=== PATIENT | male | born 1960 | race Caucasian/White ===

== ENCOUNTER 2019-08-03 00:44 | Emergency (ER) | payer BC ==
[~2019-08-03] VITALS: Ht 193 cm; Wt 117.9 kg
[2019-08-03] MEDS ORDERED: MUPIROCIN 2% OINT 22 GM TUBE TP ONE (01:15)
[2019-08-03] MEDS ORDERED: OXYCODONE/APAP 5-325 MG TABLET PO ONE (01:15)
[2019-08-03] MEDS ORDERED: MUPIROCIN 2% OINT 22 GM TUBE ONE (01:16)
[2019-08-03] MEDS ORDERED: OXYCODONE/APAP 5-325 MG TABLET ONE (01:16)
--- NOTE | 2019-08-03 01:21 | NUR ---
Patient discharged to home in stable conditon. Written and verbal after care instructions given. Patient verbalizes understanding of instructions. Pt walked out of ER in stable condition. No acute distress noted. Vital signs stable. Pt taking Uber home.
[2019-08-03 01:22] VITALS: BP 158/96
== END 2019-08-03 01:22 | disposition home or self-care (01) ==
LOC: ER 00:53
DX: L97.529 Non-pressure chronic ulcer of other part of left foot with unspecified severity (principal); L08.9 Local infection of the skin and subcutaneous tissue, unspecified; I48.91 Unspecified atrial fibrillation; F17.200 Nicotine dependence, unspecified, uncomplicated; Z88.8 Allergy status to other drugs, medicaments and biological substances
CPT/HCPCS: A4663

== ENCOUNTER 2020-03-10 15:09 | Inpatient (IN) | payer BC ==
[~2020-03-10] VITALS: Ht 193 cm; Wt 117.9 kg
--- NOTE | 2020-03-10 15:38 | NUR ---
Dr. Wilkinson at bedside for MSE
[2020-03-10] MEDS ORDERED: VANCOMYCIN IV 1,000 MG in IV DEXTROSE 5% 250 ML IV ONE (16:00)
[2020-03-10] MEDS ORDERED: ONDANSETRON 4 MG/2 ML VIAL IV ONE ×2 (16:00→18:00)
[2020-03-10] MEDS ORDERED: IV NORMAL SALINE 1000 ML BAG IV ONE ×2 (16:00)
[2020-03-10] MEDS ORDERED: LIDOCAINE HCL 2% 20 ML VIAL TP ONE (16:00)
[2020-03-10] MEDS ORDERED: HYDROMORPHONE 1 MG/1 ML DISP.SYRIN IV ONE ×2 (16:00→18:00)
[2020-03-10] MEDS ORDERED: ONDANSETRON 4 MG/2 ML VIAL ONE ×2 (16:04→17:59)
[2020-03-10] MEDS ORDERED: HYDROMORPHONE 2 MG/1 ML DISP.SYRIN ONE ×2 (16:04→17:59)
[2020-03-10] MEDS ORDERED: VANCOMYCIN IV 200 ML ONE (16:04)
[2020-03-10 16:48] LABS: BASOPHILS # (AUTO) 0.1 K/uL (0.0-8.0); BASOPHILS % (AUTO) 1.1 % (0.0-2.0); EOSINOPHILS % (AUTO) 0.4 % (0.0-7.0); HEMATOCRIT 32.6 % (36.7-47.1); HEMOGLOBIN 10.5 g/dL (12.5-16.3); LYMPHOCYTES # (AUTO) 1.5 K/uL (20.0-40.0); LYMPHOCYTES % (AUTO) 17.1 % (20.5-51.5); MEAN CORPUSCULAR HEMOGLOBIN 26.4 uug (23.8-33.4); MEAN CORPUSCULAR HGB CONC 32 g/dL (32.5-36.3); MEAN CORPUSCULAR VOLUME 82.4 fL (73.0-96.2); MONOCYTES # (AUTO) 1.1 K/uL (2.0-10.0); MONOCYTES % (AUTO) 12.2 % (0.0-11.0); NEUTROPHILS # (AUTO) 6.2 K/uL (1.8-8.9); NEUTROPHILS % (AUTO) 69.2 % (38.5-71.5); PLATELET COUNT (AUTO) 285 K/uL (152-348); RED BLOOD CELL COUNT(AUTO) 3.96 MIL/uL (4.06-5.63)
--- NOTE | 2020-03-10 16:57 | NUR ---
Mechanical Service Technician from [facility] patient resides on left contact information: Julio Cesar Villalobos [phone] to be notified when patient about to be discharged
--- NOTE | 2020-03-10 17:00 | NUR ---
Pt. admitted to [facility] , under care of Manolo Johnson CHECKER AND PACKER Belongs List completed
[2020-03-10] MEDS ORDERED: BUPR1FIL5 SL (17:04)
[2020-03-10 17:09] LABS: CREATININE 0.8 mg/dL (0.6-1.3); POTASSIUM 4.4 mmol/L (3.5-5.1)
[2020-03-10 17:13] LABS: BILIRUBIN,DIRECT 0.2 mg/dL (0.0-0.2); BILIRUBIN,TOTAL 0.5 mg/dL (0.2-1.0); TOTAL PROTEIN, SERUM 7.5 g/dL (6.4-8.2)
--- NOTE | 2020-03-10 17:38 | NUR ---
Report given to Celia BERNABE
[2020-03-10] MEDS ORDERED: ONDANSETRON 4 MG/2 ML VIAL IV PRN (18:00)
[2020-03-10] MEDS ORDERED: ZOLPIDEM 5 MG TABLET PO PRN (18:00)
[2020-03-10] MEDS ORDERED: IV NS 1000 ML 1,000 ML IV ONE (18:00)
[2020-03-10] MEDS ORDERED: ACETAMINOPHEN 325 MG TABLET PO PRN (18:00)
[2020-03-10] MEDS ORDERED: HYDROMORPHONE 1 MG/1 ML DISP.SYRIN IV PRN (18:00)
[2020-03-10] MEDS ORDERED: MAGNESIUM HYDROXIDE 30 ML LIQUID UDC PO PRN (18:00)
--- NOTE | 2020-03-10 18:38 | NUR ---
Patient was brought up by nurse Bernardo from the ER on a gurney. Received patient resting in bed. No sign of respiratory distress noted at this time patient is on room air and saturating well. Patient's IV in the left FA 20 gauge. Wick coming out of left foot from incision and drainage procedure done in the ER. In report taken from the ER nurse the sober living site that the patient reside wants to be notified when the patient is ready for discharge. Contact is Julio Cesar Araiza [phone]. Will endorse to the oncoming nurse.
[2020-03-10 18:50] VITALS: BP 139/89
[2020-03-10 21:02] VITALS: BP 134/86
[2020-03-10] MEDS: DOCUSATE SODIUM 250 MG CAPSULE PO SCH (21:14)
[2020-03-10] MEDS: HYDROMORPHONE 1 MG/1 ML DISP.SYRIN IV PRN (21:55)
--- NOTE | 2020-03-10 22:00 | NUR ---
Patient ALOx4 .On room air.No s/s of distress noted.S/p RT foot I &D.No active bleeding noted.C/O sharp, dull aching pain on rt foot .Medicated with PRN medication with relief.Patient able to ambulates to the bathroom.Iv site on Left forearm [address]Patient on ATB therapy for cellulitis.No a/ r noted.Call light with in reach and belongings.Safety measures in place.will continue to monitor.
[2020-03-11] MEDS: VANCOMYCIN IV 1,000 MG in IV DEXTROSE 5% 250 ML IV SCH ×4 (00:10→23:27)
[2020-03-11] MEDS: HYDROMORPHONE 1 MG/1 ML DISP.SYRIN IV PRN ×5 (02:38→21:07)
[2020-03-11] MEDS: HYDROCODONE/APAP 5-325MG TABLET PO PRN ×4 (05:35→19:09)
[2020-03-11 05:51] VITALS: BP 107/67
--- NOTE | 2020-03-11 05:57 | NUR ---
Patient awake .No s/s of distress noted.C/o left foot pain.Medicated with Prn Amigo with good result.Patient went back to sleep.Call light with in reach.
[2020-03-11 06:14] LABS: BASOPHILS % (AUTO) 0.2 % (0.0-2.0); EOSINOPHILS # (AUTO) 0.1 K/uL (0.0-0.7); EOSINOPHILS % (AUTO) 0.8 % (0.0-7.0); HEMATOCRIT 34.4 % (36.7-47.1); HEMOGLOBIN 10.9 g/dL (12.5-16.3); LYMPHOCYTES # (AUTO) 1.3 K/uL (20.0-40.0); LYMPHOCYTES % (AUTO) 15.7 % (20.5-51.5); MEAN CORPUSCULAR HEMOGLOBIN 26.3 uug (23.8-33.4); MEAN CORPUSCULAR HGB CONC 32 g/dL (32.5-36.3); MEAN CORPUSCULAR VOLUME 83.2 fL (73.0-96.2); MONOCYTES % (AUTO) 11.5 % (0.0-11.0); NEUTROPHILS # (AUTO) 6.1 K/uL (1.8-8.9); NEUTROPHILS % (AUTO) 71.8 % (38.5-71.5); PLATELET COUNT (AUTO) 273 K/uL (152-348); RED BLOOD CELL COUNT(AUTO) 4.14 MIL/uL (4.06-5.63); WHITE BLOOD COUNT (AUTO) 8.5 K/uL (3.6-10.2)
[2020-03-11 06:34] LABS: BILIRUBIN,TOTAL 0.7 mg/dL (0.2-1.0); CREATININE 0.9 mg/dL (0.6-1.3); MAGNESIUM 2.1 mg/dL (1.8-2.4); PHOSPHOROUS 3.3 mg/dL (2.5-4.9); POTASSIUM 4.2 mmol/L (3.5-5.1); TOTAL PROTEIN, SERUM 7.7 g/dL (6.4-8.2)
[2020-03-11] MEDS: PANTOPRAZOLE SODIUM 40 MG TABLET.DR PO SCH (06:34)
[2020-03-11 07:36] LABS: THYROID STIMULATING HORMONE 0.603 mIU/mL (0.358-3.740)
--- NOTE | 2020-03-11 09:00 | NUR ---
PATIENT SEEN AND EXAMINED BY STEPHANIE CHUCKING MACHINE SET UP OPERATOR TOOL WITH NEW ORDERS AND NOTED PATIENT CONTINUE ON PAIN MANAGEMENT ORDERED ALSO REMAIN ON ANTIBIOTICS WITH NO ADVERSE OR ALLERGIC REACTIONS AT THIS TIME RIGHT LEG ELEVATED TO RELIEVE PAIN AND REDUCE SWELLING CALL LIGHTS AND PERSONAL BELONGINGS ARE WITHIN EASY REACH WILL CONTINUE TO OBSERVE
[2020-03-11 12:00] VITALS: BP 117/86
[2020-03-11] MEDS: ZINC SULFATE 220 MG CAPSULE PO SCH (12:32)
[2020-03-11] MEDS ORDERED: LIDOCAINE HCL 1% 20 ML VIAL IJ ONE (13:45)
--- NOTE | 2020-03-11 14:48 | NUR ---
DR DAVIS HERE SEEN PATIENT DID A BEDSIDE INCISION AND DRAINAGE PATIENT SIGNED CONSCENT ORDER NOTED FOR MRI OF THE RIGHT FOOT AWAITING FOR THE MRI TIME
--- NOTE | 2020-03-11 14:59 | NUR ---
CALL RECEIVED FROM PAUL RODRIGUEZ STATED UNABLE TO DO MRI DUE TO MRI MALFUNCTION MAY BE WILL BE DONE TOMORROW OR WEDNESDAY BUT WILL CALL AND LET US KNOW.
[2020-03-11 16:00] VITALS: BP 112/81
--- NOTE | 2020-03-11 16:50 | NUR ---
CALLED DR HOOPER RE CLARIFICATION ON CAT SCAN OF THE RIGHY FOOT STATED HE WANT IT DONE WITHOUT CONTRAST CALLED RADIOLOGY SPOKE TO ONDINA STATED WILL GET PATIENT AFTER HIS VANCOMICIN INFUSSION
[2020-03-11] MEDS: METFORMIN HCL 500 MG TABLET PO SCH (17:29)
--- NOTE | 2020-03-11 17:30 | NUR ---
HIS IV SITE INFILTERATED ATTEMPTED MANY TIMES BUT UNABLE CALLED ED SOMEONE WILL BE HERE TO ATTEMPT
--- NOTE | 2020-03-11 18:42 | NUR ---
ED RN HERE AND RESTARTED HIS IV TO HIS RIGHT FOREARM WITH GAUGE 20 SO VANCO INFUSSION RESTARTED AND ITS IN PROGRESS AT THIS TIME
[2020-03-11 20:00] VITALS: BP 117/72
[2020-03-11] MEDS ORDERED: CEFTRIAXONE 1 G in IV DEXTROSE 5% 50 ML IV SCH (20:30)
[2020-03-11] MEDS: DOCUSATE SODIUM 250 MG CAPSULE PO SCH (21:05)
--- NOTE | 2020-03-11 21:45 | NUR ---
Patient in bed awake ,ALOX4 .On RA.Rt foot with dressing intact.S/p I &D .Elevated Rt foot with pillow.Called Radiologist /Moy to inform IV Vancomycin is done and Patient is ready for CT lower ext.Will continue to monitor.
[2020-03-11] MEDS ORDERED: CEFTRIAXONE 1 G VIAL ONE (21:49)
--- NOTE | 2020-03-11 22:30 | NUR ---
Patient back from radiology .Administered Rocephin 1g IV for cellulitis via peripheral line on Rt forearm with 20 g.No a/r noted.Reinforced teaching to con't to elevate Rt foot with pillow to reduce swelling.Call light with in reach .
[2020-03-12] MEDS: HYDROMORPHONE 1 MG/1 ML DISP.SYRIN IV PRN ×5 (02:25→20:14)
[2020-03-12 04:00] VITALS: BP 121/68
[2020-03-12] MEDS: PANTOPRAZOLE SODIUM 40 MG TABLET.DR PO SCH (06:05)
[2020-03-12 06:41] LABS: BASOPHILS % (AUTO) 0.3 % (0.0-2.0); EOSINOPHILS # (AUTO) 0.1 K/uL (0.0-0.7); EOSINOPHILS % (AUTO) 1.4 % (0.0-7.0); HEMATOCRIT 32.8 % (36.7-47.1); HEMOGLOBIN 10.4 g/dL (12.5-16.3); LYMPHOCYTES # (AUTO) 1.2 K/uL (20.0-40.0); LYMPHOCYTES % (AUTO) 17.6 % (20.5-51.5); MEAN CORPUSCULAR HEMOGLOBIN 26.4 uug (23.8-33.4); MEAN CORPUSCULAR HGB CONC 32 g/dL (32.5-36.3); MEAN CORPUSCULAR VOLUME 83.4 fL (73.0-96.2); MONOCYTES # (AUTO) 0.9 K/uL (2.0-10.0); MONOCYTES % (AUTO) 13.2 % (0.0-11.0); NEUTROPHILS # (AUTO) 4.5 K/uL (1.8-8.9); NEUTROPHILS % (AUTO) 67.5 % (38.5-71.5); PLATELET COUNT (AUTO) 246 K/uL (152-348); RED BLOOD CELL COUNT(AUTO) 3.93 MIL/uL (4.06-5.63); WHITE BLOOD COUNT (AUTO) 6.7 K/uL (3.6-10.2)
[2020-03-12 06:43] LABS: CREATININE 0.8 mg/dL (0.6-1.3); POTASSIUM 4.1 mmol/L (3.5-5.1)
--- NOTE | 2020-03-12 07:01 | NUR ---
Patient slept well.No s/s of distress.Iv site on rt forearm intact.No s/s of infiltration.All needs anticipated and met accordingly.
--- NOTE | 2020-03-12 07:30 | NUR ---
RECEIVED PATIENT IN BED WITH EYES CLOSED SEEMS COMFORTABLE ON ROOM AIR WITH NO SOB RIGHT ARM HEPLOCK REMAINS INTACT RIGHT FOOT ELEVATED WITH DRESSING DRY AND INTACT CALL LIGHT IS WITHIN EASY REACH NO C/O NOTED AT THIS TIME WILL CONTINUE TO OBSERVE.
[2020-03-12] MEDS: VANCOMYCIN IV 1,000 MG in IV DEXTROSE 5% 250 ML IV SCH ×3 (08:39→23:12)
[2020-03-12] MEDS: ZINC SULFATE 220 MG CAPSULE PO SCH (08:39)
[2020-03-12] MEDS: METFORMIN HCL 500 MG TABLET PO SCH ×2 (08:39→17:35)
--- NOTE | 2020-03-12 10:00 | NUR ---
RESULTS RECEIVED PER LAB PATIENT HAS MRSA BLOOD CALLED AND NOTIFIED JENNIFER INFECTIOUS DISEASE CLOCK AND WATCH HANDS DIPPER WITH NO NEW ORDERS AT THIS TIME.PATIENT PLACED ON ISOLATION PER INFECTION CONTROL PEA.
[2020-03-12 11:41] VITALS: BP 112/74
--- NOTE | 2020-03-12 11:42 | NUR ---
PATIENT SEEN AND EXAMINED BY ADAM MANAGER WELDING WITH NEW ORDERS AND NOTED
[2020-03-12 16:00] VITALS: BP 111/65
[2020-03-12] MEDS ORDERED: LIDOCAINE HCL 1% 20 ML VIAL IJ ONE (17:10)
--- NOTE | 2020-03-12 17:37 | NUR ---
DR DAVIS HERE AND DID INCISION AND DRAINAGE OF THE RIGHT FOOT AGAIN AND CHANGED THE DRESSING PATIENT KASSIDY WELL
[2020-03-12] MEDS: HYDROCODONE/APAP 5-325MG TABLET PO PRN (18:00)
--- NOTE | 2020-03-12 18:00 | NUR ---
C/O HAVING PAIN MEDICATED WITH NORCO ORDERED DRESSING RIGHT FOOT IS DRY AND INTACT ENCOURAGED TO ELEVATED ON THE PILLOW.
--- NOTE | 2020-03-12 19:00 | NUR ---
Pt in bed, awake. Denies any acute distress but c/o pain on the R. lower leg, will assess and check if PRN pain medication available. Pt had I&D done today, dressing is dry and intact. V/S stable on room air. Afebrile. IV on the RFA is intact. Safety measures in place. Call light within reach. Will continue with the plan of care.
[2020-03-12] MEDS: DOCUSATE SODIUM 250 MG CAPSULE PO SCH (20:14)
[2020-03-12 20:16] VITALS: BP 134/81
[2020-03-13] MEDS: HYDROMORPHONE 1 MG/1 ML DISP.SYRIN IV PRN ×6 (00:26→21:36)
[2020-03-13] MEDS: HYDROCODONE/APAP 5-325MG TABLET PO PRN ×4 (03:49→16:17)
--- NOTE | 2020-03-13 04:00 | NUR ---
Pt refused [place]. Will wait for about 40 mins for Dilaudid instead.
[2020-03-13 04:35] VITALS: BP 110/74
[2020-03-13 05:57] LABS: BASOPHILS % (AUTO) 0.4 % (0.0-2.0); EOSINOPHILS # (AUTO) 0.1 K/uL (0.0-0.7); EOSINOPHILS % (AUTO) 2.3 % (0.0-7.0); HEMATOCRIT 32.1 % (36.7-47.1); HEMOGLOBIN 10.3 g/dL (12.5-16.3); LYMPHOCYTES # (AUTO) 1.3 K/uL (20.0-40.0); LYMPHOCYTES % (AUTO) 24.8 % (20.5-51.5); MEAN CORPUSCULAR HEMOGLOBIN 26.3 uug (23.8-33.4); MEAN CORPUSCULAR HGB CONC 32 g/dL (32.5-36.3); MEAN CORPUSCULAR VOLUME 82.5 fL (73.0-96.2); MONOCYTES # (AUTO) 0.6 K/uL (2.0-10.0); MONOCYTES % (AUTO) 11.8 % (0.0-11.0); NEUTROPHILS # (AUTO) 3.3 K/uL (1.8-8.9); NEUTROPHILS % (AUTO) 60.7 % (38.5-71.5); PLATELET COUNT (AUTO) 263 K/uL (152-348); WHITE BLOOD COUNT (AUTO) 5.4 K/uL (3.6-10.2)
[2020-03-13] MEDS: PANTOPRAZOLE SODIUM 40 MG TABLET.DR PO SCH (06:09)
[2020-03-13 06:20] LABS: CREATININE 0.8 mg/dL (0.6-1.3); MAGNESIUM 2.1 mg/dL (1.8-2.4); POTASSIUM 4.1 mmol/L (3.5-5.1)
--- NOTE | 2020-03-13 06:22 | NUR ---
Pt slept intermittently through the night. Pt denies any acute distress/SOB. V/S stable on room air. Dressing on the R. leg remains intact, dry and no s/s of bleeding noted. Pain managed effectively. Comfort care and needs attended. Safety measures in place. Bed low and locked in position. Call light within reach. Will endorse to the oncoming nurse accordingly.
[2020-03-13 08:30] VITALS: BP 124/76
[2020-03-13] MEDS: ZINC SULFATE 220 MG CAPSULE PO SCH (09:03)
[2020-03-13] MEDS: VANCOMYCIN IV 1,000 MG in IV DEXTROSE 5% 250 ML IV SCH ×2 (09:03→16:11)
[2020-03-13] MEDS: METFORMIN HCL 500 MG TABLET PO SCH ×2 (09:03→17:32)
[2020-03-13 10:54] VITALS: BP 117/63
[2020-03-13 15:27] VITALS: BP 123/77
--- NOTE | 2020-03-13 19:30 | NUR ---
Received patient awake and lying in bed. AAOx4. No s/s of acute distress noted at this time. Patient denies SOB. C/o pain, will follow up with ordered medications. Right leg dressing dry and intact no s/s of bleeding. Bed locked and in low position. Safety measures in place and will continue to monitor.
--- NOTE | 2020-03-13 19:35 | NUR ---
Right FA IV infiltrated and swollen. Removed IV. Educated patient on elevation of the right arm as well as applying an ice pack to reduce swelling. Will continue to monitor.
[2020-03-13 20:00] VITALS: BP_SYST 104; BP_SYST 130; BP_DIAS 66; BP_DIAS 92
[2020-03-13] MEDS: DOCUSATE SODIUM 250 MG CAPSULE PO SCH (21:06)
[2020-03-14] MEDS: VANCOMYCIN IV 1,000 MG in IV DEXTROSE 5% 250 ML IV SCH ×2 (00:04→08:01)
[2020-03-14] MEDS: HYDROMORPHONE 1 MG/1 ML DISP.SYRIN IV PRN ×5 (01:16→17:01)
[2020-03-14] MEDS: HYDROCODONE/APAP 5-325MG TABLET PO PRN ×2 (03:41→19:41)
[2020-03-14 04:00] VITALS: BP 117/73
[2020-03-14] MEDS: PANTOPRAZOLE SODIUM 40 MG TABLET.DR PO SCH (06:09)
[2020-03-14 06:18] LABS: BASOPHILS % (AUTO) 0.4 % (0.0-2.0); EOSINOPHILS # (AUTO) 0.2 K/uL (0.0-0.7); EOSINOPHILS % (AUTO) 4.1 % (0.0-7.0); HEMATOCRIT 29.9 % (36.7-47.1); HEMOGLOBIN 9.7 g/dL (12.5-16.3); LYMPHOCYTES # (AUTO) 1.6 K/uL (20.0-40.0); LYMPHOCYTES % (AUTO) 30.9 % (20.5-51.5); MEAN CORPUSCULAR HEMOGLOBIN 26.6 uug (23.8-33.4); MEAN CORPUSCULAR HGB CONC 33 g/dL (32.5-36.3); MONOCYTES # (AUTO) 0.6 K/uL (2.0-10.0); MONOCYTES % (AUTO) 12.6 % (0.0-11.0); NEUTROPHILS # (AUTO) 2.6 K/uL (1.8-8.9); PLATELET COUNT (AUTO) 251 K/uL (152-348); RED BLOOD CELL COUNT(AUTO) 3.64 MIL/uL (4.06-5.63); WHITE BLOOD COUNT (AUTO) 5.1 K/uL (3.6-10.2)
[2020-03-14 06:42] LABS: CREATININE 0.9 mg/dL (0.6-1.3); MAGNESIUM 2.2 mg/dL (1.8-2.4); PHOSPHOROUS 4.1 mg/dL (2.5-4.9); POTASSIUM 3.9 mmol/L (3.5-5.1)
--- NOTE | 2020-03-14 07:00 | NUR ---
RECEIVED PATIENT IN BED WITH EYES CLOSED SEEMS COMFORTABLE ON ROOM AIR WITH NO SOB RIGHT FOOT ELEVATED WITH DRESSING DRY AND INTACT CALL LIGHT IS WITHIN REACH, NO C/O of pain NOTED AT THIS TIME WILL CONTINUE TO OBSERVE.
[2020-03-14] MEDS: ZINC SULFATE 220 MG CAPSULE PO SCH (08:02)
[2020-03-14] MEDS: METFORMIN HCL 500 MG TABLET PO SCH ×2 (08:02→17:00)
--- NOTE | 2020-03-14 11:30 | NUR ---
PATIENT SEEN AND EXAMINED BY NADIA OLIVER
[2020-03-14 11:36] VITALS: BP 120/69
--- NOTE | 2020-03-14 14:25 | NUR ---
right foot dressing change by the
[2020-03-14 16:00] VITALS: BP 115/75
[2020-03-14] MEDS ORDERED: ZINC1CAP2 PO (16:46)
[2020-03-14] MEDS ORDERED: RXVAN XX (16:46)
[2020-03-14] MEDS ORDERED: METF-440 PO (16:46)
[2020-03-14] MEDS ORDERED: VANCOMYCIN IV 750 MG in IV DEXTROSE 5% 250 ML IV SCH (17:00)
--- NOTE | 2020-03-14 19:00 | NUR ---
Patient sitting in chair, waiting to be discharged. V/S stable. But c/o pain on the R. leg. Will assess and give prescribed prn pain medication. Will continue to monitor.
--- NOTE | 2020-03-14 19:01 | NUR ---
pt refused to take the wound picture he said i do not want to open my dressing md made aware
== END 2020-03-14 20:30 | disposition home or self-care (01) | DRG 559 ==
LOC: ER 15:16 → MEDSURG3 17:49
PROVIDERS: ADMIT Nurse Practitioner Acute Care; ATTEND Registered Nurse
PROC: 0J9Q30Z Drainage of Right Foot Subcutaneous Tissue and Fascia with Drainage Device, Percutaneous Approach (ICD-10-PCS; principal; 2020-03-11)
PROC: 0J9Q30Z Drainage of Right Foot Subcutaneous Tissue and Fascia with Drainage Device, Percutaneous Approach (ICD-10-PCS; 2020-03-12)
PROC: B548ZZA Ultrasonography of Superior Vena Cava, Guidance (ICD-10-PCS; 2020-03-13)
PROC: 02HV33Z Insertion of Infusion Device into Superior Vena Cava, Percutaneous Approach (ICD-10-PCS; 2020-03-13)
DX: T84.69XA Infection and inflammatory reaction due to internal fixation device of other site, initial encounter (principal); N17.0 Acute kidney failure with tubular necrosis; A41.9 Sepsis, unspecified organism; L03.115 Cellulitis of right lower limb; E87.1 Hypo-osmolality and hyponatremia; E44.0 Moderate protein-calorie malnutrition; L02.611 Cutaneous abscess of right foot; T84.213A Breakdown (mechanical) of internal fixation device of bones of foot and toes, initial encounter; E86.0 Dehydration; D63.8 Anemia in other chronic diseases classified elsewhere; I48.91 Unspecified atrial fibrillation; E66.9 Obesity, unspecified; Z71.3 Dietary counseling and surveillance; Z68.31 Body mass index [BMI] 31.0-31.9, adult; E88.09 Other disorders of plasma-protein metabolism, not elsewhere classified; E11.610 Type 2 diabetes mellitus with diabetic neuropathic arthropathy; F17.210 Nicotine dependence, cigarettes, uncomplicated; M21.40 Flat foot [pes planus] (acquired), unspecified foot; M21.41 Flat foot [pes planus] (acquired), right foot; Z79.01 Long term (current) use of anticoagulants; M77.31 Calcaneal spur, right foot; Z79.84 Long term (current) use of oral hypoglycemic drugs
CPT/HCPCS: 36415; 36569; 70030-TC; 71045; 73630; 73700; 83550; 83605; 83690; 83735; 84100; 84443; 85025; 85730; 87040; 87070; 87077; 93005; 93307; A4217; A4663; G0378; J0696; J1170; J2405; J3370; J3490; J7030; J7040; J7060

== ENCOUNTER 2021-04-25 17:40 | Emergency (ER) | payer BC ==
[~2021-04-25] VITALS: Ht 193 cm; Wt 111.1 kg
[~2021-04-25 17:40] MED LIST: BUPR1FIL5 SL; METF-440 PO; RXVAN XX; ZINC1CAP2 PO
--- NOTE | 2021-04-25 17:56 | NUR ---
Attempted to triage pt, pt not found in ER waiting room or outside ER.
--- NOTE | 2021-04-25 20:29 | NUR ---
ROOM WAS AVAILABLE AT [facility] TIME, PLACED IN ROOM 5A.
--- NOTE | 2021-04-25 20:41 | NUR ---
Dr. Carrera at bedside for MSE.
[2021-04-25] MEDS ORDERED: HYDROMORPHONE 1 MG/1 ML DISP.SYRIN IM ONE ×2 (20:45→22:30)
[2021-04-25] MEDS ORDERED: ONDANSETRON ODT 4 MG TAB.RAPDIS SL ONE (20:45)
--- NOTE | 2021-04-25 20:49 | NUR ---
Xray at bedside.
[2021-04-25] MEDS ORDERED: ONDANSETRON ODT 4 MG TAB.RAPDIS ONE (20:51)
[2021-04-25] MEDS ORDERED: HYDROMORPHONE 2 MG/1 ML DISP.SYRIN ONE ×2 (20:51→22:28)
--- NOTE | 2021-04-25 21:30 | NUR ---
Pt out of ER for CT.
[2021-04-25] MEDS ORDERED: IPRATROPIUM BROMIDE 0.5 MG/2.5 ML NEBU NEB ONE (21:45)
[2021-04-25] MEDS ORDERED: methylPREDNISolone SOD SUCC 125 MG/2 ML VIAL IV ONE (21:45)
[2021-04-25] MEDS ORDERED: ALBUTEROL SULFATE 2.5 MG/3 ML NEBU NEB ONE (21:45)
--- NOTE | 2021-04-25 21:46 | NUR ---
Pt back to ER from CT.
[2021-04-25] MEDS ORDERED: ALBUTEROL SULFATE 2.5 MG/3 ML NEBU ONE (23:15)
[2021-04-26] MEDS ORDERED: HYDROMORPHONE 1 MG/1 ML DISP.SYRIN IM ONE
[2021-04-26] MEDS ORDERED: HYDROMORPHONE 2 MG/1 ML DISP.SYRIN ONE (00:02)
[2021-04-26] MEDS ORDERED: HYDR2TAB4 PO (00:53)
--- NOTE | 2021-04-26 01:13 | NUR ---
Patient discharged to home in stable condition. Written and verbal after care instructions given. Patient verbalizes understanding of instructions. Stressed follow up or return to ER for worsening s/s. Patient out of ER with steady gait, no acute signs of distress, VSS, all belongings taken, provided with copies of xray and CT results, and CD of images, instructed not to drive, to be driven home by family via private vehicle.
[2021-04-26 01:14] VITALS: BP 140/85
== END 2021-04-26 01:14 | disposition home or self-care (01) ==
LOC: ER 18:16
DX: S40.012A Contusion of left shoulder, initial encounter (principal); W18.39XA Other fall on same level, initial encounter; Y93.68 Activity, volleyball (beach) (court); Y92.89 Other specified places as the place of occurrence of the external cause; S42.032K Displaced fracture of lateral end of left clavicle, subsequent encounter for fracture with nonunion; X58.XXXD Exposure to other specified factors, subsequent encounter; F17.290 Nicotine dependence, other tobacco product, uncomplicated; Z88.6 Allergy status to analgesic agent; G62.9 Polyneuropathy, unspecified; R03.0 Elevated blood-pressure reading, without diagnosis of hypertension; M19.012 Primary osteoarthritis, left shoulder
CPT/HCPCS: 29105; 73030; 73200; 96372 ×3; 99284; 99406; J1170 ×3; A4663; Q0162

== ENCOUNTER 2021-07-05 09:48 | Emergency (ER) | payer BC ==
[~2021-07-05] VITALS: Ht 175.3 cm; Wt 77.1 kg
[~2021-07-05 09:48] MED LIST changes: +HYDR2TAB4 PO
--- NOTE | 2021-07-05 10:10 | NUR ---
Pt came from home ambulating slowly but without assistance. C/O pain to (R) foot. Denies any other issue/problem. Pt states being COVID (+) 1 wk ago. Pt in no acute distress at this time.
[2021-07-05] MEDS ORDERED: MORPHINE SULFATE 4 MG/1 ML DISP.SYRIN IM ONE (11:15)
[2021-07-05] MEDS ORDERED: MORPHINE SULFATE 4 MG/1 ML DISP.SYRIN ONE (11:28)
--- NOTE | 2021-07-05 12:04 | NUR ---
Pt continues to have pain, but states slight improvement S/P medication administration. Awaiting provider relations advocate U/S tech. Pt aware.
--- NOTE | 2021-07-05 12:20 | NUR ---
U/S tech at bedside. Provider will review results when available.
[2021-07-05] MEDS ORDERED: HYDR-4209 PO ×4 (13:21→14:19)
[2021-07-05] MEDS ORDERED: ACET1TAB23 PO (13:30)
[2021-07-05] MEDS ORDERED: HYDR-3980 PO (13:50)
[2021-07-05] MEDS ORDERED: SULF1TAB48 PO (14:19)
[2021-07-05 14:26] VITALS: BP 154/78
[2021-07-14] MEDS ORDERED: METO50TA16 PO (16:42)
[2021-07-14] MEDS ORDERED: MULT-594 PO (16:42)
[2021-07-14] MEDS ORDERED: RXVAN XX (16:42)
[2021-07-14] MEDS ORDERED: HYDR4TAB4 PO (16:42)
[2021-07-14] MEDS ORDERED: ACET325T53 PO (16:42)
[2021-07-14] MEDS ORDERED: ACID1TAB4 PO (16:42)
[2021-07-14] MEDS ORDERED: MAGN400O6 PO (16:42)
[2021-07-14] MEDS ORDERED: PROT30LI PO (16:42)
== END 2021-07-05 14:27 | disposition home or self-care (01) ==
LOC: ER 09:51
DX: L03.115 Cellulitis of right lower limb (principal); I48.91 Unspecified atrial fibrillation; F17.290 Nicotine dependence, other tobacco product, uncomplicated; Z88.8 Allergy status to other drugs, medicaments and biological substances; Z79.899 Other long term (current) drug therapy
CPT/HCPCS: 73630; 76881; 99284; J2270; A4663

== ENCOUNTER 2021-07-07 18:11 | Inpatient (IN) | payer BC ==
[~2021-07-07] VITALS: Ht 193 cm; Wt 108.9 kg
[~2021-07-07 18:11] MED LIST changes: +HYDR-4209 PO; +SULF1TAB48 PO
--- NOTE | 2021-07-08 01:40 | NUR ---
AFTER BEING TRIAGED, PATIENT WAS PLACED IN HALLWAY.
--- NOTE | 2021-07-08 02:00 | NUR ---
PATIENT PLACED IN 4B.
[2021-07-08] MEDS ORDERED: MORPHINE SULFATE 4 MG/1 ML DISP.SYRIN IM ONE (02:15)
[2021-07-08] MEDS ORDERED: ONDANSETRON ODT 4 MG TAB.RAPDIS SL ONE (02:15)
[2021-07-08 02:32] LABS: HEMATOCRIT 34.1 % (36.7-47.1); MEAN CORPUSCULAR HEMOGLOBIN 28.4 uug (23.8-33.4); MEAN CORPUSCULAR VOLUME 87.5 fL (73.0-96.2); PLATELET COUNT (AUTO) 180 K/uL (152-348)
[2021-07-08 02:40] LABS: CREATININE 0.9 mg/dL (0.6-1.3)
[2021-07-08 02:47] LABS: BILIRUBIN,TOTAL 0.3 mg/dL (0.2-1.0)
[2021-07-08] MEDS ORDERED: MORPHINE SULFATE 4 MG/1 ML DISP.SYRIN IV ONE (05:00)
[2021-07-08] MEDS ORDERED: VANCOMYCIN 1G/D5W 200 ML PIGGYBACK IV ONE (05:00)
[2021-07-08] MEDS ORDERED: ONDANSETRON 4 MG/2 ML VIAL IV ONE (05:00)
[2021-07-08] MEDS ORDERED: MORPHINE SULFATE 4 MG/1 ML DISP.SYRIN ONE (06:25)
[2021-07-08] MEDS ORDERED: ONDANSETRON 4 MG/2 ML VIAL ONE ×2 (06:25→10:43)
[2021-07-08] MEDS ORDERED: VANCOMYCIN IV 200 ML ONE (06:26)
[2021-07-08] MEDS ORDERED: MORPHINE SULFATE 2 MG/1 ML DISP.SYRIN ONE ×2 (06:26→10:43)
[2021-07-08] MEDS ORDERED: METO50TA16 PO (06:32)
[2021-07-08] MEDS ORDERED: APIX2.5T PO (06:32)
[2021-07-08] MEDS ORDERED: ACETAMINOPHEN 325 MG TABLET PO PRN (06:45)
[2021-07-08] MEDS ORDERED: MAGNESIUM HYDROXIDE 30 ML LIQUID UDC PO PRN (06:45)
[2021-07-08] MEDS ORDERED: MORPHINE SULFATE 2 MG/1 ML DISP.SYRIN IV PRN (06:45)
[2021-07-08] MEDS ORDERED: REMEDY ESSENTIAL ZINC PASTE 113 GM TP PRN (06:45)
--- NOTE | 2021-07-08 08:00 | NUR ---
pt hadbf with jhony akhtar.
[2021-07-08] MEDS: ONDANSETRON 4 MG/2 ML VIAL IV PRN ×2 (10:37→17:36)
--- NOTE | 2021-07-08 12:46 | NUR ---
pt transferedto floor in stable condition.hospital lunch tray provided.
--- NOTE | 2021-07-08 13:40 | NUR ---
Admitted patient from ER, report from Sepi received. The patient remained stable. no distress identified. given prn for nausea. Dilaudid given 2x during the shift, per patient 0.5mg is not effective, dr barger ordered one time 1mg of dilaudid, per patient it was effective. EKG done, copy in chart. kept call light within reach. all needs attended. all due meds given. will endorse to the next shift for continuity of care.
[2021-07-08 13:42] VITALS: BP 145/103
[2021-07-08] MEDS ORDERED: HYDROMORPHONE 1 MG/1 ML DISP.SYRIN IV PRN (13:45)
[2021-07-08] MEDS ORDERED: HYDROMORPHONE 1 MG/1 ML DISP.SYRIN IV ONE (16:45)
[2021-07-08] MEDS: VANCOMYCIN IV 1,250 MG in IV DEXTROSE 5% 250 ML IV SCH (17:09)
[2021-07-08] MEDS: HYDROMORPHONE 1 MG/1 ML DISP.SYRIN IV PRN (21:27)
[2021-07-08] MEDS ORDERED: APIXABAN 2.5 MG TABLET PO ONE (23:12)
[2021-07-09] VITALS: BP 127/82
[2021-07-09] MEDS ORDERED: PIPERACILLIN/TAZOBACTAM/D5W 50 ML IV ONE ×2 (00:39→00:40)
[2021-07-09] MEDS: PIPERACILLIN SODIUM/TAZOBACTAM 3.375 G in IV DEXTROSE 5% 50 ML IV SCH ×6 (00:56→20:14)
[2021-07-09] MEDS: HYDROMORPHONE 1 MG/1 ML DISP.SYRIN IV PRN ×7 (00:59→23:07)
[2021-07-09 04:00] VITALS: BP 128/83
[2021-07-09] MEDS: VANCOMYCIN IV 1,250 MG in IV DEXTROSE 5% 250 ML IV SCH ×3 (04:21→23:06)
--- NOTE | 2021-07-09 05:30 | NUR ---
0530 Piperacillin ABX not given, multiple unsuccessful IV attempts. Waiting on Midline placement.
[2021-07-09] MEDS ORDERED: PIPERACILLIN SODIUM/TAZOBACTAM 3.375 G in IV DEXTROSE 5% 50 ML IV SCH (06:00)
[2021-07-09 06:51] LABS: MEAN CORPUSCULAR HEMOGLOBIN 28.7 uug (23.8-33.4); MEAN CORPUSCULAR VOLUME 89.7 fL (73.0-96.2); PLATELET COUNT (AUTO) 195 K/uL (152-348)
[2021-07-09 07:03] LABS: CREATININE 1.1 mg/dL (0.6-1.3); MAGNESIUM 2.1 mg/dL (1.8-2.4); PHOSPHOROUS 4.4 mg/dL (2.5-4.9); POTASSIUM 4.7 mmol/L (3.5-5.1)
--- NOTE | 2021-07-09 07:15 | NUR ---
Slept intermittently throughout the night. AO X4. On room air saturating at 100%. A Fib with 77 bpm on tele monitor. No signs of acute distress. Pt c/o 10/10 pain on R LLE. Requests Dilaudid 1mg Q3H for pain. LYNN IV pulled out, R FA IV was placed. IV in R FA became infiltrated, Vancomycin was stopped. Arm is elevated. Midline is requested. Vital signs WNL BP 128/83, HR 78, Temp 97.5, R 18. Safety measures maintained. Call lights within reach. Will endorse to am shift.
[2021-07-09] MEDS: METOPROLOL TARTRATE 50 MG TABLET PO SCH ×2 (09:09→20:17)
[2021-07-09] MEDS: HYDROCODONE/APAP 5-325MG TABLET PO PRN (09:10)
[2021-07-09] MEDS: APIXABAN 2.5 MG TABLET PO SCH ×2 (09:14→17:10)
[2021-07-09 09:15] VITALS: BP 136/89
[2021-07-09 09:37] LABS: THYROID STIMULATING HORMONE 3.982 mIU/mL (0.358-3.740)
--- NOTE | 2021-07-09 13:24 | NUR ---
WOUND CARE CONSULT: PT EATING AT THIS TIME. PT WAS ADMITTED WITH RT FOOT WOUNDS/CELLULITIS, PRESENT ON ADMISSION. DR GILMAN CALLED FOR DPM CONSULT. IN AGREEMENT WITH PLAN OF CARE.
[2021-07-09 13:50] VITALS: BP 126/96
[2021-07-09 16:00] VITALS: BP 120/49
[2021-07-09 21:56] VITALS: BP 142/86
[2021-07-10] MEDS: PIPERACILLIN SODIUM/TAZOBACTAM 3.375 G in IV DEXTROSE 5% 50 ML IV SCH ×4 (02:18→20:05)
[2021-07-10] MEDS: HYDROMORPHONE 1 MG/1 ML DISP.SYRIN IV PRN ×5 (02:19→20:06)
[2021-07-10] MEDS: ONDANSETRON 4 MG/2 ML VIAL IV PRN (02:25)
[2021-07-10 04:00] VITALS: BP 123/90
[2021-07-10] MEDS: METOPROLOL TARTRATE 50 MG TABLET PO SCH ×2 (09:23→20:13)
[2021-07-10] MEDS: APIXABAN 2.5 MG TABLET PO SCH ×2 (09:24→17:24)
[2021-07-10 09:39] LABS: POTASSIUM 4.5 mmol/L (3.5-5.1)
[2021-07-10 11:14] VITALS: BP 131/84
--- NOTE | 2021-07-10 11:55 | NUR ---
Called Dr Jf Levy orders received for one time webb diludid 1 mg IVP prior transportation to [facility] for MRI of patient's foot. , patient refused to get into the gurney unless he receive d the dilaudid IVP, offered norco as ordered, patient refused, claimed it does not work. Dilaudid 1 mg IVP was administered by sand conditioner machine Nancy., pain level 9/10 as stated by patient. To SO/MRI via ambulance.in no distress.
[2021-07-10] MEDS ORDERED: VANCOMYCIN IV 1,250 MG in IV DEXTROSE 5% 250 ML IV SCH (12:00)
[2021-07-10] MEDS ORDERED: HYDROMORPHONE 1 MG/1 ML DISP.SYRIN IV ONE (12:00)
--- NOTE | 2021-07-10 14:25 | NUR ---
Patient back from MRI ([facility]) via ambulance, no distress, adequate pain relief
[2021-07-10 15:07] VITALS: BP 115/83
[2021-07-10] MEDS: VANCOMYCIN IV 1,250 MG in IV DEXTROSE 5% 250 ML IV SCH (17:18)
--- NOTE | 2021-07-10 18:23 | NUR ---
Ambulates to the bathroom to void, no BM today, adequate fluid intake, encouraged to elevate lower ext. > swelling to his foot noted , preferred to walk w/o any socks, discouraged from walking barefooted, r/t condition of the floor .
--- NOTE | 2021-07-10 18:26 | NUR ---
Patient preferred to take Dilaudid IVP , claimed normt does not do anything .
[2021-07-11] MEDS: HYDROMORPHONE 1 MG/1 ML DISP.SYRIN IV PRN ×7 (01:55→21:23)
[2021-07-11] MEDS: PIPERACILLIN SODIUM/TAZOBACTAM 3.375 G in IV DEXTROSE 5% 50 ML IV SCH ×4 (02:01→20:17)
[2021-07-11] MEDS: VANCOMYCIN IV 1,250 MG in IV DEXTROSE 5% 250 ML IV SCH ×2 (05:21→17:31)
[2021-07-11 06:14] LABS: HEMATOCRIT 33.5 % (36.7-47.1); MEAN CORPUSCULAR HEMOGLOBIN 29.2 uug (23.8-33.4); MEAN CORPUSCULAR VOLUME 89.8 fL (73.0-96.2); PLATELET COUNT (AUTO) 169 K/uL (152-348)
[2021-07-11 06:16] LABS: CREATININE 1.1 mg/dL (0.6-1.3); POTASSIUM 4.4 mmol/L (3.5-5.1)
[2021-07-11 06:17] LABS: MAGNESIUM 2.1 mg/dL (1.8-2.4); PHOSPHOROUS 3.7 mg/dL (2.5-4.9)
[2021-07-11] MEDS: METOPROLOL TARTRATE 50 MG TABLET PO SCH ×2 (09:22→20:19)
[2021-07-11] MEDS: APIXABAN 2.5 MG TABLET PO SCH ×2 (09:23→17:32)
[2021-07-11 11:56] VITALS: BP 116/87
--- NOTE | 2021-07-11 13:04 | NUR ---
Pt is a/o x 4, saturating 98% on room air. Pt complains of pain in the right foot, requests pain medication every 3 hours. discovery manager looking for placement for pt for D/c and continued care. Provided disability case manager's number to pt for him to call and discuss. Comfort measures provided, call light within reach, will continue to monitor.
[2021-07-11 16:04] VITALS: BP 128/83
[2021-07-11 20:00] VITALS: BP 143/98
[2021-07-12] MEDS: HYDROMORPHONE 1 MG/1 ML DISP.SYRIN IV PRN ×6 (00:32→14:57)
[2021-07-12] MEDS: PIPERACILLIN SODIUM/TAZOBACTAM 3.375 G in IV DEXTROSE 5% 50 ML IV SCH ×4 (03:36→20:42)
[2021-07-12 04:00] VITALS: BP 142/83
--- NOTE | 2021-07-12 06:02 | NUR ---
Slept intermittently. C/o pain periodically that is relieved by Dilaudid. Pt alert and able to make needs known. IV site is intact. Safety maintained. Will endorse to day shift.
[2021-07-12] MEDS: VANCOMYCIN IV 1,250 MG in IV DEXTROSE 5% 250 ML IV SCH ×2 (06:15→16:35)
--- NOTE | 2021-07-12 08:00 | NUR ---
RESTING IN BED WITH SS OF DISTRESS. STILL C/O ON AND OFF PAIN RIGHT FOOT CELLULITIS, AFEBRILE
[2021-07-12] MEDS: APIXABAN 2.5 MG TABLET PO SCH ×2 (08:43→16:36)
[2021-07-12] MEDS: METOPROLOL TARTRATE 50 MG TABLET PO SCH ×2 (08:44→20:44)
[2021-07-12] MEDS: HYDROCODONE/APAP 5-325MG TABLET PO PRN (10:00)
[2021-07-12 11:55] VITALS: BP 111/74
--- NOTE | 2021-07-12 13:19 | NUR ---
CONTINUE WITH PAIN MANAGEMENT FOR RIGHT FOOT PAIN AND IV ANTIBIOTIC FOR CELLULITIS.
[2021-07-12 17:03] VITALS: BP 133/70
[2021-07-12] MEDS: HYDROMORPHONE 2 MG/1 ML DISP.SYRIN IV PRN ×2 (17:49→20:57)
[2021-07-12 20:18] VITALS: BP 112/83
[2021-07-13] MEDS: PIPERACILLIN SODIUM/TAZOBACTAM 3.375 G in IV DEXTROSE 5% 50 ML IV SCH ×3 (03:11→15:33)
[2021-07-13] MEDS: HYDROMORPHONE 2 MG/1 ML DISP.SYRIN IV PRN ×8 (03:26→21:35)
[2021-07-13 04:21] VITALS: BP 116/71
[2021-07-13] MEDS: VANCOMYCIN IV 1,250 MG in IV DEXTROSE 5% 250 ML IV SCH ×2 (04:57→18:13)
--- NOTE | 2021-07-13 06:48 | NUR ---
Patient awake.slept intermittently ,c/o right foot pain medicated with Dilaudid IVP every 3 hrs given as ordered with good result.RT foot cellulitis, no skin breakdown. Continue on ATB therapy .No a/r noted. All needs anticipated and met accordingly.VSS
--- NOTE | 2021-07-13 08:00 | NUR ---
Discussed plan of care with patient re: pain management. Pt agreeable with plan to call nursing when pain level is still low ie3 -4 and not wait until pain level is all the way to 10. Right arm ML access intact. +1 Cody LE's swelling noted. Encouraged pt to elevate legs.
[2021-07-13] MEDS: APIXABAN 2.5 MG TABLET PO SCH ×2 (09:31→18:13)
[2021-07-13] MEDS: METOPROLOL TARTRATE 50 MG TABLET PO SCH ×2 (09:33→21:35)
[2021-07-13 12:00] VITALS: BP 121/78
[2021-07-13 16:00] VITALS: BP 144/81
[2021-07-13] MEDS: PROTEIN SUPPLEMENT (PROSTAT) 30 ML LIQUID PO SCH (17:55)
--- NOTE | 2021-07-13 18:41 | NUR ---
Pt's pain managed with dilaudid 1.5 q 3 hrs. Resp 18. Call light is within reach.
--- NOTE | 2021-07-13 19:30 | NUR ---
Received pt awake, alert and orientedx4. Pt in no acute distress.Pt can make his needs known. Pt iv intact. Pt requesting for increase in his pain medication.. Safety and comfort provided. Will continue to monitor.
--- NOTE | 2021-07-13 20:18 | NUR ---
Pt requesting for 2 mg dilaudid because as per pt 1.5 mg doesn't help. Notify Margarita Phan Concrete Batch Plant Operator regarding pt request. Sylvester ordered Dilaudid 2mg IV HSPRN for severe pain.
[2021-07-13 20:57] VITALS: BP 112/79
[2021-07-13] MEDS ORDERED: HYDROCODONE/APAP 10-325 MG TABLET PO PRN (21:15)
[2021-07-14] MEDS: HYDROMORPHONE 2 MG/1 ML DISP.SYRIN IV PRN ×8 (00:54→22:39)
--- NOTE | 2021-07-14 02:00 | NUR ---
Pt given [place] prn at 2350h for 7/10 pain scale on his right foot. Pt tolerated it well. After 30 minutes Pt stated it felt a bit better but still painful. At 0054H Dilaudid 2mg prn given for pt for right foot pain after an hour pt stated pain subsided. Pt tolerated it well. Pt stable and in no acute distress. Will continue to monitor.
[2021-07-14 04:00] VITALS: BP 135/76
[2021-07-14] MEDS: VANCOMYCIN IV 1,250 MG in IV DEXTROSE 5% 250 ML IV SCH ×2 (04:02→17:14)
[2021-07-14 06:26] LABS: HEMATOCRIT 34.8 % (36.7-47.1); MEAN CORPUSCULAR HEMOGLOBIN 28.5 uug (23.8-33.4); MEAN CORPUSCULAR VOLUME 89.8 fL (73.0-96.2); PLATELET COUNT (AUTO) 195 K/uL (152-348)
--- NOTE | 2021-07-14 06:42 | NUR ---
Pt slept intermittently. Pt in no acute distress. IV intact. Prescribed medication given and pt tolerated it well.Pain management needed. Safety and comfort provided. All needs are met. Will endorse to incoming nurse for continuity of care.
[2021-07-14 07:02] LABS: MAGNESIUM 2.4 mg/dL (1.8-2.4); PHOSPHOROUS 4.2 mg/dL (2.5-4.9); POTASSIUM 4.8 mmol/L (3.5-5.1)
--- NOTE | 2021-07-14 08:00 | NUR ---
PT is in no acute distress. Plan of care discussed with pt re: pain management. Pt agreeable with plan.
[2021-07-14] MEDS: PROTEIN SUPPLEMENT (PROSTAT) 30 ML LIQUID PO SCH ×2 (09:11→17:17)
[2021-07-14] MEDS: METOPROLOL TARTRATE 50 MG TABLET PO SCH ×2 (09:11→21:03)
[2021-07-14] MEDS: APIXABAN 2.5 MG TABLET PO SCH ×2 (09:14→17:14)
[2021-07-14 11:00] VITALS: BP 113/64
[2021-07-14 15:18] VITALS: BP 143/86
[2021-07-14] MEDS ORDERED: MAGN400O6 PO (16:42)
[2021-07-14] MEDS ORDERED: ACID1TAB4 PO (16:42)
[2021-07-14] MEDS ORDERED: RXVAN XX (16:42)
[2021-07-14] MEDS ORDERED: ACET325T53 PO (16:42)
[2021-07-14] MEDS ORDERED: PROT30LI PO (16:42)
[2021-07-14] MEDS ORDERED: MULT-594 PO (16:42)
[2021-07-14] MEDS ORDERED: METO50TA16 PO (16:42)
[2021-07-14] MEDS ORDERED: HYDR4TAB4 PO (16:42)
--- NOTE | 2021-07-14 18:30 | NUR ---
Per DR barger cancel discharge. Pt's pain managed with dilaudid 2 mg.
--- NOTE | 2021-07-14 19:35 | NUR ---
PATIENT ALERT NO SOB NO CHEST PAIN, CONT ON PAIN MANAGEMENT DUE TO CELLULITIS OF R LEG/FEET. PATIENT ASK THE DILAUDID ROUND THE CLOCK, AND WATCHES THE CLOCK FOR THE NEXT DOSE. PATIENT ASK FOR PAIN MEDS EARLIER THAN THE NEXT DOSE, ACCUSED STAFF OF DELAYING HIS NEXT DOSE OF PAIN MEDS, BUT THE REALITY PATIENT GETTING IT ROUND THE CLOCK.
[2021-07-14 20:21] VITALS: BP 150/96
[2021-07-15] MEDS: HYDROMORPHONE 2 MG/1 ML DISP.SYRIN IV PRN ×7 (01:33→20:35)
--- NOTE | 2021-07-15 04:05 | NUR ---
PATIENT AWAKE, NO SOB NO CHEST PAIN, PATIENT REPORTED THAT WENT DOWN TO THE LOBBY AND WENT OUT THE HOSPITAL, POLITICAL SCIENCE INSTRUCTOR WAS ABLE TO TALK TO PATIENT TO COME BACK IN. PATIENT ACCUSED STAFF THAT HIS NOT GETTING HIS DILADUD AT ALL, THE TRUTH IS PATIENT GETTING HIS DILAUDID 2MG Q 3 HRS ROUND THE CLOCK. PATIENT DOES NOT SLEEP AND WATCH THE CLOCK FOR THE NEXT DOSE OF PAIN MEDS.
[2021-07-15 04:21] VITALS: BP 123/86
[2021-07-15] MEDS: VANCOMYCIN IV 1,250 MG in IV DEXTROSE 5% 250 ML IV SCH (04:43)
--- NOTE | 2021-07-15 07:05 | NUR ---
PATIENT AWAKE MOST OF THE NIGHT, WALKS AROUND THE ROOM, AND ON BY HIS DOOR, NO S/S OF PAIN ON CELLULITIS SIDE. PATIENT ASK FOR PAIN MEDS AND NOT DUE YET, WROTE ON HIS ROOM THE NEXT TIME FOR PAIN,
[2021-07-15] MEDS: APIXABAN 2.5 MG TABLET PO SCH (08:33)
[2021-07-15] MEDS: METOPROLOL TARTRATE 50 MG TABLET PO SCH ×2 (08:34→20:47)
[2021-07-15] MEDS: PROTEIN SUPPLEMENT (PROSTAT) 30 ML LIQUID PO SCH ×2 (08:53→16:11)
[2021-07-15 12:07] VITALS: BP 111/75
[2021-07-15] MEDS ORDERED: RXENO XX (14:38)
[2021-07-15] MEDS ORDERED: RIFA300C4 PO (14:38)
[2021-07-15] MEDS ORDERED: WARF-68 PO (14:38)
[2021-07-15] MEDS ORDERED: DAPT500V2 IV (14:38)
[2021-07-15] MEDS ORDERED: ENOXAPARIN SODIUM 100 MG/ML DISP.SYRIN SQ SCH (16:00)
[2021-07-15] MEDS ORDERED: DAPTOMYCIN 500 MG in IV NORMAL SALINE 50 ML IV SCH (16:00)
[2021-07-15 16:17] VITALS: BP 103/74
[2021-07-15] MEDS ORDERED: WARFARIN SODIUM 2 MG TABLET PO ONE (17:00)
[2021-07-15] MEDS: ONDANSETRON 4 MG/2 ML VIAL IV PRN (18:46)
[2021-07-15] MEDS ORDERED: RIFAMPIN 300 MG CAPSULE PO SCH (21:00)
--- NOTE | 2021-07-15 21:30 | NUR ---
Pt discharged to [facility] by [facility] ambulance at 2120H. No distress noted. Midline kept in place to continue IV antibiotics.
== END 2021-07-15 21:45 | DRG 559 ==
LOC: ER 18:22 → TRANSITION 07-08 07:50 → MEDSURG3 07-08 12:34 → TELE3 07-08 13:03 → MEDSURG3 07-09 11:25
PROVIDERS: ADMIT Internal Medicine; ATTEND Internal Medicine
PROC: 05H633Z Insertion of Infusion Device into Left Subclavian Vein, Percutaneous Approach (ICD-10-PCS; principal; 2021-07-09)
PROC: B547ZZA Ultrasonography of Left Subclavian Vein, Guidance (ICD-10-PCS; 2021-07-09)
PROC: 05H533Z Insertion of Infusion Device into Right Subclavian Vein, Percutaneous Approach (ICD-10-PCS; 2021-07-12)
PROC: B546ZZA Ultrasonography of Right Subclavian Vein, Guidance (ICD-10-PCS; 2021-07-12)
DX: T84.69XA Infection and inflammatory reaction due to internal fixation device of other site, initial encounter (principal); E43 Unspecified severe protein-calorie malnutrition; L03.115 Cellulitis of right lower limb; I48.20 Chronic atrial fibrillation, unspecified; L97.419 Non-pressure chronic ulcer of right heel and midfoot with unspecified severity; M86.8X7 Other osteomyelitis, ankle and foot; Y83.8 Other surgical procedures as the cause of abnormal reaction of the patient, or of later complication, without mention of misadventure at the time of the procedure; D64.9 Anemia, unspecified; E11.610 Type 2 diabetes mellitus with diabetic neuropathic arthropathy; E11.621 Type 2 diabetes mellitus with foot ulcer; Z79.84 Long term (current) use of oral hypoglycemic drugs; Z87.891 Personal history of nicotine dependence; Z20.822 Contact with and (suspected) exposure to COVID-19; Z86.14 Personal history of Methicillin resistant Staphylococcus aureus infection; E66.9 Obesity, unspecified; M19.90 Unspecified osteoarthritis, unspecified site; Z68.29 Body mass index [BMI] 29.0-29.9, adult; Z95.0 Presence of cardiac pacemaker; L97.519 Non-pressure chronic ulcer of other part of right foot with unspecified severity; M79.671 Pain in right foot; G89.29 Other chronic pain; M21.41 Flat foot [pes planus] (acquired), right foot; E11.69 Type 2 diabetes mellitus with other specified complication; Y92.009 Unspecified place in unspecified non-institutional (private) residence as the place of occurrence of the external cause
CPT/HCPCS: 36415; 73723; 83735; 84100; 84443; 85025; 85651; 86140; 86803; 87040; 87806; 93005; A4663; G0378; J0878; J1170; J1650; J2270; J2405; J2543; J3370; J3490; J7040; J7060; Q0162

== ENCOUNTER 2021-09-01 16:12 | Emergency (ER) | payer BC ==
[~2021-09-01] VITALS: Ht 193 cm; Wt 117.9 kg
[~2021-09-01 16:12] MED LIST changes: +ACET325T53 PO; +ACID1TAB4 PO; -BUPR1FIL5 SL; +DAPT500V2 IV; -HYDR-4209 PO; -HYDR2TAB4 PO; +HYDR4TAB4 PO; +MAGN400O6 PO; -METF-440 PO; +METO50TA16 PO; +MULT-594 PO; +PROT30LI PO; +RIFA300C4 PO; +RXENO XX; -SULF1TAB48 PO; +WARF-68 PO; -ZINC1CAP2 PO
[2021-09-01] MEDS ORDERED: IV NORMAL SALINE 1000 ML BAG IV ONE (16:30)
[2021-09-01] MEDS ORDERED: HYDROMORPHONE 1 MG/1 ML DISP.SYRIN IV ONE ×2 (16:30→18:15)
[2021-09-01] MEDS ORDERED: VANCOMYCIN IV 1,000 MG in IV DEXTROSE 5% 250 ML IV ONE (16:30)
[2021-09-01] MEDS ORDERED: HYDROMORPHONE 1 MG/1 ML DISP.SYRIN ONE ×2 (17:49→18:29)
[2021-09-01 18:01] LABS: *BILIRUBIN,URIN NEGATIVE (NEGATIVE); *BLOOD, URINE NEGATIVE (NEGATIVE); *CLARITY,URINE CLEAR (CLEAR); *COLOR,URINE YELLOW (YELLOW); *KETONES,URINE NEGATIVE (NEGATIVE); *UROBILINOGEN,URINE 0.2 E.U./dl (NORMAL); LEUKOCYTE ESTERASE ,URINE TRACE (NEGATIVE); NITRITE, URINE NEGATIVE (NEGATIVE); PH,URINE 6.5 (5.0-8.0); UGLUCOSE NEGATIVE (NEGATIVE)
[2021-09-01 18:43] LABS: BACTERIA,URINE FEW /HPF (NONE SEEN); RBC,URINE 0-3 /HPF (0-3); SQUAMOUS EPITHELIAL CELL,UR NONE SEEN /HPF (NONE SEEN); WBC,URINE 0-3 /HPF (0-3)
--- NOTE | 2021-09-01 19:11 | NUR ---
patient awake, alert. IV infusing on the left foot. patient c/o nausea. informed Dr Montano.
[2021-09-01] MEDS ORDERED: PROCHLORPERAZINE EDISYLATE 10 MG/2 ML VIAL IV ONE (19:30)
--- NOTE | 2021-09-01 19:53 | NUR ---
blood drawn including blood cultures. started iv vancomycin.
[2021-09-01] MEDS ORDERED: PROCHLORPERAZINE EDISYLATE 10 MG/2 ML VIAL ONE (19:56)
[2021-09-01] MEDS ORDERED: VANCOMYCIN IV 200 ML ONE (20:06)
--- NOTE | 2021-09-01 20:11 | NUR ---
pt signed out AMA Dr. Montano made aware. iv removed to left foot site. Dr. Montano speaking with the pt.
[2021-09-01 20:14] LABS: HEMATOCRIT 36.4 % (36.7-47.1); MEAN CORPUSCULAR HEMOGLOBIN 29.6 uug (23.8-33.4); MEAN CORPUSCULAR VOLUME 89.4 fL (73.0-96.2); PLATELET COUNT (AUTO) 267 K/uL (152-348)
--- NOTE | 2021-09-01 20:20 | NUR ---
iv vancomycin not given pt signed out ama. Dr. Montano spoke with the pt.
[2021-09-01 20:21] LABS: BILIRUBIN,DIRECT 0.1 mg/dL (0.0-0.2); BILIRUBIN,TOTAL 0.3 mg/dL (0.2-1.0); CREATININE 0.9 mg/dL (0.6-1.3); POTASSIUM 4.2 mmol/L (3.5-5.1); TOTAL PROTEIN, SERUM 7.4 g/dL (6.4-8.2)
--- NOTE | 2021-09-01 20:21 | NUR ---
Patient does not wish to proceed with medical care recommended by ( ). Patient given information related to possible complications, up to and including , which could occur as a result of leaving the hospital at this time. Patient verbalizes understanding of risks involved due to leaving against medical advice. Patient has signed AMA form.
[2021-09-01 20:22] VITALS: BP 136/97
== END 2021-09-01 20:22 | disposition left against medical advice (07) ==
LOC: ER 16:15
DX: M79.671 Pain in right foot (principal); S91.301A Unspecified open wound, right foot, initial encounter; X58.XXXA Exposure to other specified factors, initial encounter; Y92.89 Other specified places as the place of occurrence of the external cause; I48.20 Chronic atrial fibrillation, unspecified; Z79.01 Long term (current) use of anticoagulants; E11.610 Type 2 diabetes mellitus with diabetic neuropathic arthropathy; Z98.890 Other specified postprocedural states; F17.200 Nicotine dependence, unspecified, uncomplicated; T84.223D Displacement of internal fixation device of bones of foot and toes, subsequent encounter; Z88.6 Allergy status to analgesic agent
CPT/HCPCS: 73630; 80048; 80076; 81001; 83605; 85025; 85651; 85730; 86140; 87040 ×2; 87086; 96374 ×2; 96375; 99284; J0780; J1170 ×2; 36415; A4663; J3370